=== PATIENT | male | born 1945 | race Two or more races ===

== ENCOUNTER 2019-11-08 12:35 | Inpatient (IN) | payer OTHER ==
[~2019-11-08] VITALS: Ht 177.8 cm; Wt 100.7 kg
[~2019-11-08 12:35] MED LIST: AVANDAMET 2 MG/1 TA1; GLUCOTROL10 MG; HYZAAR 100/25 T1 TAB; JANUMET XR 50-1 EAC1; LANTUS SOL100 UNIT/1; TOPROL XL50 MG; TRICOR145 MG; ULTRACET PO; VYTORIN 10-20 M1 TAB
--- NOTE | 2019-11-08 13:01 | NUR ---
SE RECIBE PTE. MASCULINO ALERTA CONCAIENTE Y ORIENTADO QUE REFIERE DOLOR DE PECHO, DOLOR ABDOMINAL VOMITOS X 2. NAUSEAS CONTINUAS VOMITOS FUERON ANOCHE. SE REALIZA EKG Y SE PRESENTA A MEDICO EN TURNO PARA EVALUACION Y FIRMA.
--- NOTE | 2019-11-08 14:06 | NUR ---
PACIENTE ALERTA Y ORIENTADO EN LUCRETIA NIRALI ESFERAS, ES ORIENTADO SOBRE ORDENES MEDICAS, REFIERE ENTENDER. SE COLECTAN MUESTRAS DE RANDY Y SE ADMINISTRAN MEDICAMENTOS ORDENADOS. PENDIENTE RADIOGRAFIAS ORDENADAS.
--- NOTE | 2019-11-08 15:00 | NUR ---
SE RECIBE AL PACIENTE EN UNIDAD DE CRITICO CUBICULO #3. PACIENTE EN CAMA AL NIVEL MAS BAJO, BARANDAS ELEVADAS Y FRENOS COLOCADOS. PACIENTE NO REFIERE DOLOR AL MOMENTO. PACIENTE CONECECTADO AL MONITOR CARDIACO Y SATURNOMETRO DE PULSO CONTINUO. SE LE [place] LUCRETIA VITALES Y SE DOCUMENTAN LOS MISMO. SE MANTIENE AL PACIENTE BAJO OBSERVACION POR CAMBIOS EN CONDICION DE MARLA.
--- NOTE | 2019-11-08 16:43 | NUR ---
SE ORIENTA AL PACIENTE SOBRE CANALIZACION Y MEDICAMENTOS A SER ADMINISTRADOS HAYDEE ORDEN MEDICA. PACIENTE REFIERE ENTENDER. SE PROCEEDE A CANALIZAR AL PACIENTE Y PROVEER MEDICAMENTOS ORDENADOS UTILIZANDO MEDIDAS ASEPTICAS.
== END 2019-11-12 13:24 | disposition home or self-care (01) | DRG 440 ==
LOC: ER 12:35 → SURH 20:27
PROVIDERS: ADMIT Internal Medicine Cardiovascular Disease; ATTEND Internal Medicine Cardiovascular Disease
PROC: BW40ZZZ Ultrasonography of Abdomen (ICD-10-PCS; principal; 2019-11-09)
PROC: BF37ZZZ Magnetic Resonance Imaging (MRI) of Pancreas (ICD-10-PCS; 2019-11-11)
DX: K85.10 Biliary acute pancreatitis without necrosis or infection (principal); E13.9 Other specified diabetes mellitus without complications; I10 Essential (primary) hypertension; E78.5 Hyperlipidemia, unspecified; G47.33 Obstructive sleep apnea (adult) (pediatric); F17.200 Nicotine dependence, unspecified, uncomplicated; R91.8 Other nonspecific abnormal finding of lung field; N28.89 Other specified disorders of kidney and ureter; Z79.4 Long term (current) use of insulin; Z20.828 Contact with and (suspected) exposure to other viral communicable diseases

== ENCOUNTER 2019-11-28 07:38 | Outpatient (CLI) | payer OTHER | END 2019-11-28 07:45 | disposition home or self-care (01) | LOC: TOM 07:38 | PROVIDERS: ATTEND Internal Medicine Cardiovascular Disease | DX: R10.84 Generalized abdominal pain (principal); J44.9 Chronic obstructive pulmonary disease, unspecified ==

== ENCOUNTER 2021-07-01 15:39 | Emergency (ER) | payer OTHER ==
[~2021-07-01] VITALS: Ht 177.8 cm; Wt 102.1 kg
== END 2021-07-02 02:17 | disposition home or self-care (01) ==
LOC: ER 15:39
DX: S89.92XA Unspecified injury of left lower leg, initial encounter (principal); S82.002A Unspecified fracture of left patella, initial encounter for closed fracture; W18.30XA Fall on same level, unspecified, initial encounter; Y93.9 Activity, unspecified

== ENCOUNTER 2022-08-11 08:58 | Outpatient (CLI) | payer OTHER | END 2022-08-11 09:03 | disposition home or self-care (01) | LOC: RX STUDY 08:58 | DX: D64.9 Anemia, unspecified (principal); R10.13 Epigastric pain ==